=== PATIENT | male | born 2000 | race Caucasian/White ===

== ENCOUNTER 2024-03-09 08:37 | Emergency (ER) | payer BC, SELFPAY ==
[2024-03-09 08:40] VITALS: BP 129/59
--- NOTE | 2024-03-09 09:20 | ED.GENMED ---
History of Present Illness
General
Chief Complaint: Abdominal Symptoms
Source: patient
Time Seen by Provider: 03/09/24 09:03
History of Present Illness
History of Present Illness:
23yoM with a history of Crohn's disease (diagnosed 2 years ago, treating holistically) presenting with his significant other for evaluation of abdominal pain. Symptoms began last night. He reports a stabbing pain in his upper abdomen. He has had
about 10+ episodes of bloody diarrhea since last night. He is also having vomiting. He reports chills but denies any fevers. He has a history of C.diff about a year ago. No recent antibiotics. Of note, patient was seen at [facility] about a month
ago for anemia. Hemoglobin was reportedly 7.3 at that time. He has had repeat blood work twice since then and hemoglobin improved to 8.9. No previous abdominal surgeries.
Phy Exam
General Physical Exam
General Presentation: well appearing and no apparent distress
General age: appears stated age
General Skin: warm and dry
General Habitus: normal
General Mental: alert
ENT Exam
ENT Exam: normocephalic
Pulmonary Exam
Pulmonary Exam: no respiratory distress
Gastrointestinal Exam
Gastrointestinal Exam: soft, non distended and other (+Tenderness to epigastric/RUQ regions. No rebound or guarding.)
Neurological Exam
Neurological Exam: alert
[place] Coma Scale
Eye Opening: Spontaneous
Verbal Response: Oriented
Motor Response: Obeys Commands
GCS Total Score: 15
Skin Exam
Skin Exam: normal color and warm/dry
Psychiatric Exam
Psychiatric Exam: normal mood/affect
Course
Orders/Labs/Results
Orders:
Orders
03/09/24 09:12
0.9% Sodium Chloride 500 ml [Nss] 500 ml IV BOLUS
Iohexol [Omnipaque] See Protocol PO NOW STA
03/09/24 09:13
CT Abd/pel W Iv And Oral Contr Urgent
Comment:
Reason For Exam: Upper abd pain, hx of Crohn's
03/09/24 09:38
Type+Screen Urgent
CRP [C-Reactive Protein] Urgent
Complete Blood Count/With Diff Urgent
Comprehensive Metabolic Panel Urgent
Lipase Urgent
03/09/24 12:34
ABO2 Urgent
BBK Wristband Number:
Associate notified that ABO2 has been ordered: RICHARD-ER
Date: 03/09/24
Time: 10:01
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
Abnormal Lab Results
03/09/24
09:38
RBC 4.40 L 10^6/uL
(4.70-6.10)
Hgb 9.7 L g/dL
(13.0-18.0)
Hct 33.9 L %
(39.0-52.0)
MCV 77.0 L fL
(80.0-94.0)
MCH 22.0 L pg
(27.0-31.0)
MCHC 28.6 L g/dL
(33.0-37.0)
RDW 22.2 H %
(11.5-14.5)
Plt Count 414 H 10^3/uL
(130-400)
Absolute Lymphs (auto) 0.8 L 10^3/uL
(1.2-3.4)
Absolute Monos (auto) 1.1 H 10^3/uL
(0.1-0.6)
Neutrophils % 75.6 H %
(42.2-75.2)
Lymphocytes % 9.0 L %
(20.5-51.1)
Monocytes % 13.2 H %
(1.7-9.3)
BUN 8 L mg/dl
(9-20)
Glucose 107 H mg/dl
(70-99)
Total Bilirubin 0.1 L mg/dl
(0.2-1.3)
C-Reactive Protein 36.90 H mg/L
(0.0-10.00)
Total Protein 6.1 L g/dl
(6.3-8.2)
Albumin 3.2 L g/dl
(3.5-5.0)
03/09/24 09:38
03/09/24 09:38
Vital Signs
Initial and Last Documented VS:
Initial Vital Signs
Temp Pulse Resp BP Pulse Ox
98.9 F 89 16 129/59 100
03/09/24 08:40 03/09/24 08:40 03/09/24 08:40 03/09/24 08:40 03/09/24 08:40
Last Documented Vital Signs
Temp Pulse Resp BP Pulse Ox
98.9 F 92 14 126/78 98
03/09/24 08:40 03/09/24 12:31 03/09/24 12:31 03/09/24 12:31 03/09/24 12:31
MDM/Problems Addressed
Differential Diagnosis Includes:
23yoM here with bloody diarrhea, vomiting, and abd pain since last night. Hx of Crohn's disease, treated holistically. He is afebrile and hemodynamically stable. He is well-appearing in no acute distress. No signs of peritonitis on abdominal
exam. Differential diagnosis includes but is not limited to: IBD exacerbation, gastroenteritis, colitis, appendicitis, viral illness
Initial ED plan: Check abdominal labs, CRP, stool studies, and CT abdomen with IV/PO contrast. IV fluid bolus.
*Critical Care Note
Total Time (30-74mins, 75-104mins- exclusive of procedures): Not Applicable
Update Note
Update Note:
CRP elevated at 36. White count normal. Hemoglobin is 9.9 which is above baseline per patient. CT abdomen shows evidence of Crohn's disease involving the distal ileum and colon. No evidence of abscess or obstruction. On reassessment, patient
states he is feeling significantly improved. He has not had any bowel movements during ED stay. I initially reached out to gastroenterology although patient states he is not interested in prednisone/medications and would like to be discharged. He
plans to f/u with his holistic medicine doctor. He was given contact information for gastroenterology. Strict ED return precautions discussed. He was discharged in stable condition.
ED Attending Note
-
Portions of this chart may have been created with voice recognition software.� Occasional wrong word or��sound alike� substitutions may have occurred due to the inherent limitations of voice recognition software.
Discharge Plan
Departure
Patient Disposition: Home (Routine Discharge)
Date of Disposition: 03/09/24
Time of Disposition: 12:50
Patient with high blood pressure during this ER visit?: No
Discharge Problem:
Exacerbation of Crohn's disease
Instructions: Crohn disease in adults
Referrals:
Makenna Pina NP [Family Provider] -
Chris Marks, DO [Active] -
Activity Restrictions/Additional Instructions:
Please follow-up with gastroenterology. Return to the ER with any worsening symptoms, severe pain, fevers.
Interventions
Interventions:
*Risk Screen - Suicide Last Done: 03/09/24 08:43
*General Assessment Last Done: 03/09/24 09:26
*Neglect/Abuse Screening Last Done: 03/09/24 08:43
ED- Fall Risk Assessment Last Done: 03/09/24 11:00
*ED COVID-19 Vaccine History Last Done: 03/09/24 13:08
*Nursing Disposition Last Done: 03/09/24 13:08
WT-Xzawdu-Lcvtkwamay Assessment Last Done: 03/09/24 11:00
Discharge Date and Time
Discharge Date/Time: 03/09/24 13:09
Print Language: URDU
[2024-03-09 09:25] VITALS: BMI 22.3
[2024-03-09] MEDS: OMNIPAQUE 50 ML PO (09:28)
[2024-03-09] MEDS: NSS 500 IV (09:29)
[2024-03-09 09:52] LABS: % Basophils 0.3 % (0-2); % Eosinophils 1.6 % (0-6); % Immature Granulocytes 0.3 % (0-0.5); % Monocytes 13.2 % (1.7-9.3); % Neutrophils 75.6 % (42.2-75.2); Absolute Eosinophils 0.1 10^3/uL (0-0.7); Absolute Lymphocytes 0.8 10^3/uL (1.2-3.4); Absolute Monocytes 1.1 10^3/uL (0.1-0.6); Absolute Neutrophils 6.5 10^3/uL (1.4-6.5); Hematocrit 33.9 % (39.0-52.0); Hemoglobin 9.7 g/dL (13.0-18.0); Mean Corp Hgb Conc. 28.6 g/dL (33.0-37.0); Mean Platelet Volume 8.2 fL (7.4-10.4); Nucleated Red Blood Cells % 0 % (-); Platelet Count 414 10^3/uL (130-400); Red Cell Dist. Width 22.2 % (11.5-14.5); White Blood Cell Count 8.6 10^3/uL (4.8-10.8)
[2024-03-09 10:02] LABS: ALT (SGPT) 25 U/L (0-50); AST (SGOT) 23 U/L (17-59); Albumin 3.2 g/dl (3.5-5.0); Alkaline Phosphatase 89 U/L (38-126); Blood Urea Nitrogen 8 mg/dl (9-20); Calcium 8.4 mg/dl (8.4-10.2); Carbon Dioxide 24 mmol/L (22-30); Chloride 105 mmol/L (98-107); Estimated Creatinine Clearance > 125 ml/min; Glucose 107 mg/dl (70-99); Lipase 51 U/L (23-300); Sodium 137 mmol/L (135-145); Total Bilirubin 0.1 mg/dl (0.2-1.3); Total Protein 6.1 g/dl (6.3-8.2); eGFR > 60.00
[2024-03-09 10:30] LABS: Normal RBC Morphology No
[2024-03-09 10:31] LABS: Anisocytosis 1+
[2024-03-09 10:32] LABS: Hypochromasia 1+; Ovalocytes 1+; Poikilocytosis Slight
[2024-03-09 12:31] VITALS: BP 126/78
== END 2024-03-09 13:09 | disposition home or self-care (01) ==
LOC: EMR 08:37
PROVIDERS: Physician Assistant; EMERGENCY PHYSICIAN Student in an Organized Health Care Education/Training Program; FAMILY PHYSICIAN Nurse Practitioner Family
DX: K50.811 Crohn's disease of both small and large intestine with rectal bleeding (principal); D64.9 Anemia, unspecified
CPT/HCPCS: 99284; 96360; 74177; 80053; 83690; 85025; 86140; 86850; 86900; 86901; Q9967